=== PATIENT | female | born 1935 | race Two or more races ===

== ENCOUNTER 2017-11-17 02:13 | Inpatient (IN) | payer OTHER ==
[~2017-11-17] VITALS: Ht 154.9 cm; Wt 66.7 kg
[2017-11-17] MEDS ORDERED: ONDANSETRON HCL/PF 4 MG/2 ML VIAL IV ONE (04:30)
[2017-11-17] MEDS ORDERED: PIPERACILLIN /TAZOBACTAM 3.375 G in IV D5W 50 ML IV ONE (04:30)
[2017-11-17] MEDS ORDERED: IV NS 0.9% 1,000 ML BAG IV ONE (04:30)
[2017-11-17] MEDS ORDERED: ONDANSETRON HCL/PF 4 MG/2 ML VIAL ONE (04:46)
[2017-11-17 05:32] LABS: ALANINE AMINOTRANSFERASE 36 U/L (12-78); ALBUMIN 3.6 g/dL (3.4-5.0); ALKALINE PHOSPHATASE 76 U/L (46-116); ASPARTATE AMINOTRANSFERASE 39 U/L (15-37); BASOPHILS % (AUTO) 0.2 % (0.0-2.0); BILIRUBIN,TOTAL 0.3 mg/dL (0.2-1.0); CALCIUM, SERUM 9.4 mg/dL (8.5-10.1); CARBON DIOXIDE 33 mmol/L (21-32); CHLORIDE 102 mmol/L (98-107); EOSINOPHILS % (AUTO) 0.4 % (0.0-6.0); GLUCOSE 121 mg/dL (74-106); HEMATOCRIT 42 % (33-45); HEMOGLOBIN 13.8 g/dL (11.5-14.8); LIPASE 650 U/L (73-393); LYMPHOCYTES # (AUTO) 1.3 /CMM (0.8-4.8); LYMPHOCYTES % (AUTO) 16.4 % (20.0-44.0); MEAN CORPUSCULAR HEMOGLOBIN 28 PG (26.0-33.0); MEAN CORPUSCULAR HGB CONC 33 g/dl (31.0-36.0); MEAN CORPUSCULAR VOLUME 87 fL (82-100); MONOCYTES # (AUTO) 0.6 /CMM (0.1-1.30); MONOCYTES % (AUTO) 7.7 % (2.0-12.0); NEUTROPHILS # (AUTO) 5.7 /CMM (1.8-8.9); NEUTROPHILS % (AUTO) 75.3 % (43.0-81.0); PLATELET COUNT (AUTO) 194 /CMM (150-450); POTASSIUM 4.1 mmol/L (3.5-5.1); RDW COEFFICIENT OF VARIATION 13.4 (11.5-15.0); RED BLOOD CELL COUNT(AUTO) 4.86 MIL/uL (4.0-5.2); SODIUM SERUM 141 mmol/L (136-145); TOTAL PROTEIN, SERUM 8.1 g/dL (6.4-8.2); UREA NITROGEN, BLOOD 11 mg/dL (7-18); WHITE BLOOD COUNT (AUTO) 7.6 K/uL (4.3-11.0)
[2017-11-17] MEDS ORDERED: LOSA25TA13 PO (08:24)
[2017-11-17] MEDS ORDERED: CARV6.252 PO (08:24)
[2017-11-17] MEDS ORDERED: PANT20TA3 PO (08:24)
[2017-11-17] MEDS ORDERED: CLOP75TA15 PO (08:24)
[2017-11-17] MEDS ORDERED: LATA2.5D7 EACHEYE (08:24)
[2017-11-17] MEDS ORDERED: TRAZ-147 PO (08:24)
[2017-11-17] MEDS ORDERED: ATOR40TA PO (08:24)
[2017-11-17] MEDS ORDERED: LEVO50TA8 PO (08:24)
[2017-11-17] MEDS ORDERED: LORA0.5T PO (08:24)
[2017-11-17 09:00] VITALS: BP 114/67
[2017-11-17 09:24] VITALS: BP 114/67
[2017-11-17] MEDS ORDERED: ONDANSETRON HCL/PF 4 MG/2 ML VIAL IVP PRN (10:30)
[2017-11-17] MEDS ORDERED: ZOLPIDEM TARTRATE 5 MG TABLET PO PRN (10:30)
[2017-11-17] MEDS ORDERED: MAG HYDROX/AL HYDROX/SIMETH 30 ML UDC PO PRN (10:30)
[2017-11-17] MEDS ORDERED: MAGNESIUM HYDROXIDE 30 ML UDC PO PRN (10:30)
[2017-11-17] MEDS ORDERED: HYDROCODONE/APAP 5/325MG 1 EACH TABLET PO PRN (10:30)
[2017-11-17] MEDS ORDERED: MORPHINE SULFATE INJ 2 MG/ML DISP.SYRIN IV PRN (10:30)
[2017-11-17] MEDS ORDERED: ACETAMINOPHEN 325 MG TABLET PO PRN (10:30)
[2017-11-17] MEDS ORDERED: Z GUARD REMEDY 2 OZ OINT TP PRN (10:30)
[2017-11-17] MEDS: IV D5/0.45 NACL 1,000 ML IV PRN (13:47)
[2017-11-17 16:00] VITALS: BP 124/80
[2017-11-17 20:00] VITALS: BP 123/70
[2017-11-17] MEDS ORDERED: LORAZEPAM INJ 2 MG/ML VIAL ONE (21:06)
[2017-11-17] MEDS: LORAZEPAM INJ 2 MG/ML VIAL IV PRN (21:40)
[2017-11-18] MEDS: IV D5/0.45 NACL 1,000 ML IV PRN (02:24)
[2017-11-18 08:00] VITALS: BP 119/71
[2017-11-18 08:05] LABS: BASOPHILS % (AUTO) 0.1 % (0.0-2.0); EOSINOPHILS # (AUTO) 0.1 /CMM (0.0-0.7); EOSINOPHILS % (AUTO) 2.3 % (0.0-6.0); HEMATOCRIT 37 % (33-45); HEMOGLOBIN 12.4 g/dL (11.5-14.8); LYMPHOCYTES # (AUTO) 1.8 /CMM (0.8-4.8); LYMPHOCYTES % (AUTO) 29.1 % (20.0-44.0); MEAN CORPUSCULAR HEMOGLOBIN 29 PG (26.0-33.0); MEAN CORPUSCULAR HGB CONC 34 g/dl (31.0-36.0); MEAN CORPUSCULAR VOLUME 86 fL (82-100); MONOCYTES # (AUTO) 0.7 /CMM (0.1-1.30); MONOCYTES % (AUTO) 10.8 % (2.0-12.0); NEUTROPHILS # (AUTO) 3.6 /CMM (1.8-8.9); NEUTROPHILS % (AUTO) 57.7 % (43.0-81.0); PLATELET COUNT (AUTO) 182 /CMM (150-450); RDW COEFFICIENT OF VARIATION 13.7 (11.5-15.0); RED BLOOD CELL COUNT(AUTO) 4.26 MIL/uL (4.0-5.2); WHITE BLOOD COUNT (AUTO) 6.2 K/uL (4.3-11.0)
[2017-11-18 08:14] LABS: CARBON DIOXIDE 31 mmol/L (21-32); CHLORIDE 106 mmol/L (98-107); CREATININE 0.9 mg/dL (0.6-1.3); GLUCOSE 100 mg/dL (74-106); LIPASE 291 U/L (73-393); POTASSIUM 3.5 mmol/L (3.5-5.1); SODIUM SERUM 142 mmol/L (136-145); UREA NITROGEN, BLOOD 6 mg/dL (7-18)
[2017-11-18 08:21] LABS: CALCIUM, SERUM 8.4 mg/dL (8.5-10.1)
[2017-11-18 08:22] LABS: CHOLESTEROL 103 mg/dL (<200); HDL CHOLESTEROL 34 mg/dL (40-60); LDL 53 mg/dL (0-99); TRIGLYCERIDES 92 mg/dL (30-150)
[2017-11-18] MEDS: PANTOPRAZOLE 40 MG VIAL IV SCH (09:34)
[2017-11-18 16:00] VITALS: BP 128/78
[2017-11-18] MEDS ORDERED: IV D5/0.45 NACL 1,000 ML IV PRN (16:33)
[2017-11-18 20:00] VITALS: BP 133/72
[2017-11-18 20:53] VITALS: BP 133/72
[2017-11-18] MEDS: LORAZEPAM INJ 2 MG/ML VIAL IV PRN (22:36)
[2017-11-19] MEDS: LORAZEPAM INJ 2 MG/ML VIAL IV PRN (04:30)
[2017-11-19 08:00] VITALS: BP 136/80
[2017-11-19] MEDS ORDERED: LOSARTAN POTASSIUM 25 MG TABLET PO SCH (09:00)
[2017-11-19] MEDS ORDERED: CARVEDILOL 6.25 MG TABLET PO SCH (09:00)
[2017-11-19] MEDS ORDERED: CLOPIDOGREL BISULFATE 75 MG TABLET PO SCH (09:00)
[2017-11-19] MEDS: PANTOPRAZOLE 40 MG VIAL IV SCH (09:24)
[2017-11-19 09:26] VITALS: BP 136/80
[2017-11-19] MEDS ORDERED: LATANOPROST EYE DROP 0.005% 2.5 ML BOTTLE EACHEYE SCH (22:00)
[2017-11-19] MEDS ORDERED: ATORVASTATIN 40 MG TABLET PO SCH (22:00)
[2017-11-19] MEDS ORDERED: TRAZODONE 50 MG TABLET PO SCH (22:00)
[2017-11-20] MEDS ORDERED: LEVOTHYROXINE SODIUM 50 MCG TABLET PO SCH (07:30)
== END 2017-11-19 13:10 | disposition home or self-care (01) | DRG 440 ==
LOC: ER 02:14 → MED 06:32
DX: K85.90 Acute pancreatitis without necrosis or infection, unspecified (principal); E78.5 Hyperlipidemia, unspecified; I25.10 Atherosclerotic heart disease of native coronary artery without angina pectoris; I10 Essential (primary) hypertension
CPT/HCPCS: 36415; 76705-TC; 80048-TC; 80061-TC; 80076-TC; 83690-TC; 84484-TC; 85025-TC; 87081-TC; A4606; C9113; J2060; J2405; J2543; J3490; J7030; J7060; Z7610